=== PATIENT | female | born 1980 | race Two or more races ===

== ENCOUNTER 2016-05-10 18:01 | Emergency (ER) | payer OTHER, MEDICAID ==
[~2016-05-10] VITALS: Ht 167.6 cm; Wt 102.1 kg
[2016-05-10 19:14] LABS: Basophils # (auto) 0 uL; Basophils % (auto) 0.4 % (0.0-2.0); Eosinophils # (auto) 0.1 uL; Eosinophils % (auto) 1.3 % (0.0-7.0); Hematocrit 39.2 % (36.0-46.0); Hemoglobin 13.1 g/dL (12.2-16.2); Lymphocytes # (auto) 2.1 uL; Lymphocytes % (auto) 22.5 % (10.0-50.0); Mean Corpuscular Hgb Conc. 33.4 g/dL (32.0-36.0); Mean Corpuscular Volume 89.7 fL (80.0-100.0); Mean Platelet Volume 9.8 fL (7.4-10.4); Monocytes # (auto) 0.4 uL; Monocytes % (auto) 4.8 % (0.0-12.0); Neutrophils # (auto) 6.5 uL; Platelet Count (auto) 305 10^3/uL (140-450); Red Cell Distribution Width 12.8 % (11.6-16.0); White Blood Cell 9.2 10^3/uL (4.4-10.8)
[2016-05-10 19:29] LABS: BUN/Creatinine Ratio 23.9; Calcium 8.5 mg/dL (8.5-10.1); Potassium 3.5 mmol/L (3.5-5.1)
[2016-05-10 19:32] LABS: Bilirubin, Total 0.7 mg/dL (0.2-1.0); Total Protein 7.8 g/dL (6.4-8.2)
[2016-05-11 01:39] LABS: Urine Bilirubin Negative (Negative); Urine Color Yellow (Yellow); Urine Glucose Normal (Normal); Urine Ketone TRACE (Negative); Urine Mucus FEW (None Seen); Urine Nitrite Negative (Negative); Urine RBC 95 /hpf (0 - 4); Urine Squamous Epithelial Cell FEW /hpf (<5); Urine Urobilinogen Normal (Negative); Urine pH 5.5 (5.0-8.0)
[2016-05-11 01:40] LABS: Urine Blood 2+ /uL (Negative)
[2016-05-11 01:43] LABS: Amylase 32 U/L (25-115)
[2016-05-11 02:04] LABS: Salicylate 3.4 mg/dL (2.8-20.0)
[2016-05-11 02:06] LABS: Acetaminophen < 2.0 ug/mL (10-30)
[2016-05-11] MEDS ORDERED: LORazepam 0.5 MG TAB PO ONE (02:15)
[2016-05-11] MEDS ORDERED: SODIUM CHLORIDE 0.9% 1,000 ML IV ONE (02:15)
[2016-05-11] MEDS ORDERED: cefTRIAXone 1GM/50ML D5W 50 ML IV ONE (02:15)
[2016-05-11 03:31] VITALS: BP 112/74
== END 2016-05-11 03:48 | disposition home or self-care (01) ==
LOC: EDBD 18:01 → EDUNIT# 18:01 → ER 18:08
DX: N39.0 Urinary tract infection, site not specified (principal); F15.10 Other stimulant abuse, uncomplicated; Z88.6 Allergy status to analgesic agent
CPT/HCPCS: 36415; 80053; 80329; 81001; 81025; 82150; 83690; 85025; 96365; 99284; G0434; J0696; J7030